=== PATIENT | male | born 1965 | race African-American/Black ===

== ENCOUNTER 2016-10-18 18:00 | Emergency (ER) | payer MEDICAID ==
[~2016-10-18] VITALS: Ht 175.3 cm; Wt 94.3 kg
[2016-10-18 18:21] VITALS: BP 105/86
[2016-10-18 19:08] LABS: Basophils # (auto) 0 uL; Basophils % (auto) 0.3 % (0.0-2.0); CONDITION AutoValidated; Eosinophils # (auto) 0 uL; Eosinophils % (auto) 0.1 % (0.0-7.0); Hematocrit 45.3 % (41.0-53.0); Hemoglobin 15.3 g/dL (13.5-17.5); Lymphocytes # (auto) 1.2 uL; Lymphocytes % (auto) 15.2 % (10.0-50.0); Mean Corpuscular Hgb Conc. 33.9 g/dL (32.0-36.0); Mean Corpuscular Volume 85.5 fL (80.0-100.0); Mean Platelet Volume 9.8 fL (7.4-10.4); Monocytes # (auto) 0.6 uL; Monocytes % (auto) 7.6 % (0.0-12.0); Neutrophils # (auto) 6.2 uL; Neutrophils % (auto) 76.8 % (37.0-80.0); Platelet Count (auto) 239 10^3/uL (140-450); Red Cell Distribution Width 13.3 % (11.6-16.0); White Blood Cell 8.1 10^3/uL (4.4-10.8)
[2016-10-18 19:30] LABS: Anion Gap 13 (5-15); Aspartate Aminotransferase 9 U/L (15-37); BUN/Creatinine Ratio 13.4; Blood Urea Nitrogen 42 mg/dL (7-18); Calcium 10.6 mg/dL (8.5-10.1); Carbon Dioxide 33 mmol/L (21-32); Chloride 90 mmol/L (98-107); GFR African American 27 mL/min; GFR Non-African American 23 mL/min; Potassium 3.4 mmol/L (3.5-5.1); Sodium 136 mmol/L (136-145)
[2016-10-18 19:43] LABS: Alkaline Phosphatase 101 U/L (45-117); Bilirubin, Total 0.3 mg/dL (0.2-1.0); Total Protein 9.2 g/dL (6.4-8.2)
[2016-10-18 21:28] LABS: Glucose 546 mg/dL (74-106)
== END 2016-10-18 22:33 | disposition left against medical advice (07) ==
LOC: ER 18:00
DX: R73.9 Hyperglycemia, unspecified (principal); Z53.21 Procedure and treatment not carried out due to patient leaving prior to being seen by health care provider
CPT/HCPCS: 36415; 80053; 82010; 84484; 85025

== ENCOUNTER 2016-10-26 22:27 | Emergency (ER) | payer MEDICAID ==
[~2016-10-26] VITALS: Ht 175.3 cm; Wt 86.2 kg
[2016-10-27] MEDS ORDERED: MORPHINE SULF INJ 2 MG/ML SYRINGE 1ML IV ONE (03:00)
[2016-10-27] MEDS ORDERED: ONDANSETRON HCL 4 MG/2 ML VIAL IV ONE (03:00)
[2016-10-27 03:17] LABS: Basophils # (auto) 0 uL; Basophils % (auto) 0.1 % (0.0-2.0); CONDITION Y; Eosinophils # (auto) 0.1 uL; Eosinophils % (auto) 0.9 % (0.0-7.0); Hematocrit 45.3 % (41.0-53.0); Hemoglobin 15.2 g/dL (13.5-17.5); Lymphocytes # (auto) 1.6 uL; Lymphocytes % (auto) 24.4 % (10.0-50.0); Mean Corpuscular Hemoglobin 28.6 pg (28.0-32.0); Mean Corpuscular Hgb Conc. 33.5 g/dL (32.0-36.0); Mean Corpuscular Volume 85.1 fL (80.0-100.0); Mean Platelet Volume 10.4 fL (7.4-10.4); Monocytes % (auto) 14.5 % (0.0-12.0); Neutrophils % (auto) 60.1 % (37.0-80.0); Platelet Count (auto) 229 10^3/uL (140-450); SUSPECT SEE PRINTOUT; White Blood Cell 6.7 10^3/uL (4.4-10.8)
[2016-10-27 03:35] LABS: INR 1.16 (0.9-1.15); Partial Thromboplastin Time 26.5 sec (22.64-33.71)
[2016-10-27 03:36] LABS: Prothrombin Time 12.7 sec (9.37-12.3)
[2016-10-27 03:43] LABS: Albumin 3.8 g/dL (3.4-5.0); BUN/Creatinine Ratio 20.5; Bilirubin, Total 0.5 mg/dL (0.2-1.0); Total Protein 8.5 g/dL (6.4-8.2)
[2016-10-27 03:46] LABS: B-Type Natriuretic Peptide 35.76 pg/mL (0-100)
[2016-10-27 03:53] LABS: Temperature: 22.2 C (20.0-25.0)
[2016-10-27 03:55] LABS: Potassium 2.3 mmol/L (3.5-5.1)
[2016-10-27] MEDS ORDERED: POTASSIUM CHL 20 Meq TABLET PO ONE (04:15)
[2016-10-27 04:55] LABS: Allen Test Yes; Base Excess 22.4 mmol/L (-2.0-2.0); Blood 02Sat 94.8 % (96-100); Blood COHb 0.6 % (0.5-1.5); Blood MetHb 0.3 % (0.0-1.5); HCO3 46.4 mmol/L (22-26.0); HHb 5.2 % (0.0-5.0); MODE ROOM AIR; O2Hb 93.9 % (94.0-97.0); PCO2 44.1 mmHg (35.0-45.0); PCO2(T) 44.1 mmHg (35.0-45.0); PO2 73.7 mmHg (80.0-100.0); PO2(T) 73.7 mmHg (80.0-100.0); Sample Type Arterial
[2016-10-27] MEDS: POTASSIUM CHL 20MEQ/100ML 100 ML IV SCH ×2 (04:55→06:50)
[2016-10-27 05:15] LABS: Lactic Acid w/Reflex 2.7 mmol/L (0.4-2.0)
[2016-10-27 05:30] LABS: REFLEX LACTIC ACID YES OR NO YES
[2016-10-27] MEDS ORDERED: POTASSIUM CHL 20MEQ/100ML 100 ML IV ONE (05:45)
[2016-10-27] MEDS ORDERED: PROMETHAZINE HCL 25 MG/ML 1ML IV ONE ×2 (06:45→08:15)
[2016-10-27] MEDS ORDERED: SODIUM CHLORIDE 0.9% 1,000 ML IVB ONE (07:50)
[2016-10-27] MEDS ORDERED: MEPERIDINE HCL (50 MG/ML) 1 ML VIAL IV ONE (08:15)
[2016-10-27 08:54] LABS: Magnesium 2.9 mg/dL (1.6-2.6)
[2016-10-27 10:17] LABS: Albumin 3.5 g/dL (3.4-5.0); BUN/Creatinine Ratio 18.5; Bilirubin, Total 0.4 mg/dL (0.2-1.0); Calcium 9.3 mg/dL (8.5-10.1); Total Protein 7.7 g/dL (6.4-8.2)
[2016-10-27] MEDS ORDERED: POTASSIUM CHL 10% (20 MEQ/15ML) ORAL SOLN PO ONE (10:45)
[2016-10-27] MEDS ORDERED: InsuLIN REG 1unit/0.01ml Soln (100units/ml) IV ONE (10:45)
[2016-10-27 11:05] VITALS: BP 100/68
== END 2016-10-27 11:18 | disposition short-term general hospital (02) ==
LOC: EDUNIT# 22:27 → ER 22:27 → EDBD 22:27 → ER 10-27 11:18
DX: E11.65 Type 2 diabetes mellitus with hyperglycemia (principal); E11.21 Type 2 diabetes mellitus with diabetic nephropathy; B19.20 Unspecified viral hepatitis C without hepatic coma; E87.6 Hypokalemia; N19 Unspecified kidney failure; E87.3 Alkalosis; K85.90 Acute pancreatitis without necrosis or infection, unspecified; M19.90 Unspecified osteoarthritis, unspecified site; I10 Essential (primary) hypertension; Z88.8 Allergy status to other drugs, medicaments and biological substances
CPT/HCPCS: 36415; 36600; 71020; 74176; 80053; 82010; 82805; 82962; 83605; 83690; 83735; 83880; 84443; 84484; 85025; 85610; 85730; 93005; 96365; 96366; 96375; 96376; 99291; J1815; J2175; J2270; J2405; J2550; J3480; 96361